=== PATIENT | male | born 1950 | race Caucasian/White ===

== ENCOUNTER 2019-04-17 06:04 | Inpatient (IN) | payer MEDICARE, OTHER ==
[~2019-04-17 06:04] MED LIST: Acetaminophen 325 MG Tab PO SCH; Pregabalin 25 MG Cap PO SCH; oxyCODONE ER 10 MG TAB.ER PO SCH
[2019-04-17] MEDS ORDERED: Ondansetron 4 MG/2 ML SDV IVPUSH PRN (06:35)
[2019-04-17] MEDS ORDERED: Morphine 2 MG/ML Syringe IVPUSH PRN (06:35)
[2019-04-17] MEDS ORDERED: Magnesium Hydroxide 400 MG/5 ML Susp 30 ML Cup PO PRN (06:35)
[2019-04-17] MEDS ORDERED: Bisacodyl 5 MG Tab PO PRN (06:35)
[2019-04-17] MEDS ORDERED: Sennosides 8.6 MG Tab PO PRN (06:35)
[2019-04-17] MEDS ORDERED: Naloxone 0.4 MG/ML SDV IVPUSH PRN (06:35)
[2019-04-17] MEDS ORDERED: Scopolamine 1.5 MG Transdermal Patch TOP SCH (06:47)
--- NOTE | 2019-04-17 06:57 | PCM.PREANE ---
Preanesthetic Assessment - Anesthesia/Transfusion/Family Hx Anesthesia History: Prior Anesthesia Reaction (nausea) Family History of Anesthesia Reaction: Yes (nausea) Transfusion History: Prior Transfusion Without Reaction - Review of Systems General: No Symptoms Pulmonary: No Symptoms Cardiovascular: No Symptoms Gastrointestinal: No Symptoms Neurological: No Symptoms Other: Reports: Easy Bruising, Diabetes (160 this am 0600) - Physical Assessment NPO Status Date: 04/16/19 NPO Status Time: 00:00 Height: 1.88 m Weight: 85.9 kg ASA Class: 3 Mental Status: Alert & Oriented x3 Airway Class: Mallampati = 1 Dentition: Reports: Broken Tooth/Teeth, Caries Thyro-Mental Finger Breadths: 3 Mouth Opening Finger Breadths: 3 ROM/Head Extension: Full Lungs: Clear to Auscultation, Normal Respiratory Effort Cardiovascular: Regular Rate, Regular Rhythm - Lab Values: Laboratory Last Values POC Glucose 160 mg/dL (80-115) H 04/17/19 06:34 MRSA (PCR) Negative 04/05/19 16:20 - Imaging/EKG Impressions: EKG NSR rate 61 - Allergies Allergies/Adverse Reactions: Allergies Allergy/AdvReac Type Severity Reaction Status Date / Time bacitracin Allergy Blisters Verified 04/14/19 14:28 Penicillins Allergy Hives Verified 04/14/19 14:28 Tetracyclines Allergy Rash Verified 04/14/19 14:28 - Blood Blood Available: No Product(s) Available: None - Anesthesia Plan Pre-Op Medication Ordered: Beta Shahla Beta Shahla: Metoprolol Med Last Dose Date: 04/17/19 Med Last Dose Time: 05:00 - Acknowledgements Anesthesia Type Planned: General Anesthesia, Regional Block (right interscalene block for post-op pain control) Pt an Appropriate Candidate for the Planned Anesthesia: Yes Alternatives and Risks of Anesthesia Discussed w Pt/Guardian: Yes Pt/Guardian Understands and Agrees with Anesthesia Plan: Yes PreAnesthesia Questionnaire HEENT History: Reports: Other (See Below) Other HEENT History: change in hearing, hearing aids bilaterally Cardiovascular History: Reports: Afib, CAD, Other (See Below) Other Cardiovascular History: mitral valve regurgitation, chest pain, afib, high cholesterol Respiratory History: Reports: None Gastrointestinal History: Reports: GERD, Other (See Below) Other Gastrointestinal History: nausea, abdominal pain Genitourinary History: Reports: BPH, Other (See Below) Other Genitourinary History: ureterolithiasis, right flank pain, slow stream [employer] History: Reports: None Musculoskeletal History: Reports: Osteoarthritis, Other (See Below) Other Musculoskeletal History: shoulder impingment, tenosynovitis of hand, joint pain, low back pain Neurological History: Reports: Other (See Below) Other Neuro History: lumbosacral radicular arm pain, back pain, back surgery, laminectomy, L3L4L5 Psychiatric History: Reports: None Endocrine/Metabolic History: Reports: Diabetes, Type II Hematologic History: Reports: None Immunologic History: Reports: None Oncologic (Cancer) History: Reports: None Dermatologic History: Reports: Seborrheic Dermatitis - Past Surgical History Head Surgeries/Procedures: Reports: None HEENT Surgical History: Reports: Eye Surgery Cardiovascular Surgical History: Reports: Coronary Artery Bypass Respiratory Surgical History: Reports: None GI Surgical History: Reports: Hernia Repair/Other Female Surgical History: Reports: None Male Surgical History: Reports: None Endocrine Surgical History: Reports: None Neurological Surgical History: Reports: None Musculoskeletal Surgical History: Reports: Other (See Below) Other Musculoskeletal Surgeries/Procedures:: left rotator cuff, right knee arthroscopy Oncologic Surgical History: Reports: None Dermatological Surgical History: Reports: None - SUBSTANCE USE Smoking Status *Q: Former Smoker Tobacco Use Within Last Twelve Months: No Second Hand Smoke Exposure: No Days Per Week of Alcohol Use: 0 Number of Drinks Per Day: 0 Total Drinks Per Week: 0 Recreational Drug Use History: No - HOME MEDS Home Medications: Home Meds Acetaminophen/Diphenhydramine [Tylenol Pm Ex-Strength Caplet] 2 dose PO BEDTIME PRN 04/14/19 [History] Cannabidiol (Cbd) Extract [CBD Oil] 1 dose PO DAILY 04/14/19 [History] Celecoxib 200 mg PO BID PRN 04/14/19 [History] Cholecalciferol (Vitamin D3) [Vitamin D3] 5,000 unit PO DAILY 04/14/19 [History] Diltiazem HCl [Cardizem Cd] 240 mg PO DAILY 04/14/19 [History] Empagliflozin [Jardiance] 25 mg PO DAILY 04/14/19 [History] Ezetimibe 10 mg PO DAILY 04/14/19 [History] Insulin Glarg,Human.Rec.Analog [Lantus Solostar] 20 units SQ BEDTIME 04/14/19 [ History] Ketoconazole [Nizoral 2% Crm] 1 dose TOP BID 04/14/19 [History] Lisinopril [Prinivil] 5 mg PO DAILY 04/14/19 [History] Metoprolol Succinate [Toprol Xl] 25 mg PO DAILY 04/14/19 [History] Omeprazole 20 mg PO DAILY 04/14/19 [History] Ondansetron HCl [Zofran] 4 mg PO TID PRN 04/14/19 [History] Pioglitazone HCl 30 mg PO DAILY 04/14/19 [History] Rivaroxaban [Xarelto] 20 mg PO DAILY 04/14/19 [History] Rosuvastatin Calcium 20 mg PO DAILY 04/14/19 [History] Tamsulosin HCl 0.4 mg PO DAILY 04/14/19 [History] metFORMIN HCl [Metformin HCl] 850 mg PO BID 04/14/19 [History] - CURRENT (IN HOUSE) MEDS Current Meds: Current Medications Acetaminophen (Tylenol) 975 mg PO NOW [facility] Stop: 04/17/19 12:00 Bisacodyl (Dulcolax) 5 mg PO DAILY PRN PRN Reason: Constipation Cyclobenzaprine HCl (Flexeril) 10 mg PO TID PRN PRN Reason: Spasms Docusate Sodium (Colace) 100 mg PO BID KENNY Famotidine (Pepcid) 20 mg PO Q12H [facility] [place] Lactated Ringer's (Ringers, Lactated) 1,000 mls @ 125 mls/hr IV ASDIRECTED [facility] Stop: 04/17/19 23:00 Cefazolin Sodium/Dextrose 2 gm (/ Premix) 50 mls @ 100 mls/hr IV Q8H [facility] [place] Stop: 04/17/19 23:14 Ketorolac Tromethamine (Toradol) 15 mg IVPUSH Q6H PRN PRN Reason: Pain Lidocaine/Sodium Bicarbonate (Buffered Lidocaine 1% In Ns 8.4%) 0.25 ml IDERM ONETIME PRN PRN Reason: Prior to IV Start Stop: 04/17/19 18:00 Magnesium Hydroxide (Milk Of Magnesia) 30 ml PO BID PRN PRN Reason: Constipation Miscellaneous Information (Remove Patch) 1 ea TRDERM ONETIME PRN PRN Reason: patch removal Stop: 04/20/19 12:00 Morphine Sulfate (Morphine) 2 mg IVPUSH Q2H PRN PRN Reason: Breakthrough Pain Naloxone HCl (Narcan) 0.1 mg IVPUSH Q5M PRN PRN Reason: Oversedation Ondansetron HCl (Zofran) 4 mg IVPUSH Q6H PRN PRN Reason: Nausea/Vomiting Oxycodone HCl (Oxycontin) 10 mg PO ONETIME KENNY Stop: 04/17/19 12:00 Oxycodone/Acetaminophen (Percocet 325-5 Mg) 1 - 2 tab PO Q4H PRN PRN Reason: Pain Pregabalin (Lyrica) 50 mg PO ONETIME KENNY Stop: 04/17/19 12:00 Scopolamine (Transderm-Scop) 1.5 mg TOP ONETIME KENNY Stop: 04/17/19 12:00 Senna (Senna) 8.6 mg PO BID PRN PRN Reason: Constipation Sodium Chloride (Saline Flush) 10 ml FLUSH ASDIRECTED PRN PRN Reason: Keep Vein Open Stop: 04/17/19 18:00
[2019-04-17] MEDS ORDERED: Famotidine 20 MG Tab PO SCH (07:00)
[2019-04-17] MEDS ORDERED: Lactated Ringers 1,000 ML IV SCH (07:00)
[2019-04-17] MEDS ORDERED: Sodium Chloride 0.9% 10 ML Syringe FLUSH PRN (07:00)
[2019-04-17] MEDS: Lidocaine 1%/Sod Bicarbonate in NS 8.4% 1 ML Syringe IDERM PRN ×2 (07:06→07:08)
[2019-04-17] MEDS ORDERED: Midazolam 1 MG/ML 2 ML SDV ONE (07:15)
[2019-04-17] MEDS ORDERED: Ondansetron 4 MG/2 ML SDV ONE (07:15)
[2019-04-17] MEDS ORDERED: Propofol 200 MG/20 ML SDV ONE ×8 (07:15→09:58)
[2019-04-17] MEDS ORDERED: fentaNYL 100 MCG/2 ML SDV ONE (07:15)
[2019-04-17] MEDS ORDERED: Lidocaine 1% 4 ML ONE (07:17)
[2019-04-17] MEDS ORDERED: Rocuronium 100 MG/10 ML MDV ONE (07:17)
--- NOTE | 2019-04-17 07:18 | PCM.CONS ---
H&P History of Present Illness - General Date of Service: 04/17/19 Admit Problem/Dx: Admission Diagnosis/Problem Admission Diagnosis/Problem Osteoarthritis of shoulder Source of Information: Patient, Old Records, Provider, RN, RN Notes Reviewed History Limitations: Reports: No Limitations - History of Present Illness Initial Comments - Free Text/Narative: Brien Reaves is a 68 yo male patient of Dr. Germain who is post-operative day 0 of right RTSA. Hospital medicine was consulted for post-operative medical care of the following listed medical conditions. At this time he is resting comfortably in bed. Pain is controlled. He denies any chest pain, shortness of breath, palpitations, nausea, or vomiting. He carries a history of: Type II DM, CVD, A- Fib, CAD with CABG x3 in 2001, Mitral valve regurgitation, Gastritis, OA, BPH, HTN, Anemia, GERD, HLD, Shoulder impingment, tenosynovitis of hand, chronic low back pain. He is a former smoker. He is a full code. His primary care provider is Dr. Lopez. Right Shoulder Pain Score (Numeric/FACES): 1 - Related Data Allergies/Adverse Reactions: Allergies Allergy/AdvReac Type Severity Reaction Status Date / Time bacitracin Allergy Blisters Verified 04/17/19 11:17 Penicillins Allergy Hives Verified 04/17/19 11:17 Tetracyclines Allergy Rash Verified 04/17/19 11:17 Home Medications: Home Meds Acetaminophen/Diphenhydramine [Tylenol Pm Ex-Strength Caplet] 2 dose PO BEDTIME PRN 04/14/19 [History] Cannabidiol (Cbd) Extract [CBD Oil] 1 dose PO DAILY 04/14/19 [History] Celecoxib 200 mg PO BID PRN 04/14/19 [History] Cholecalciferol (Vitamin D3) [Vitamin D3] 5,000 unit PO DAILY 04/14/19 [History] Diltiazem HCl [Cardizem Cd] 240 mg PO DAILY 04/14/19 [History] Empagliflozin [Jardiance] 25 mg PO DAILY 04/14/19 [History] Ezetimibe 10 mg PO DAILY 04/14/19 [History] Insulin Glarg,Human.Rec.Analog [Lantus Solostar] 20 units SQ BEDTIME 04/14/19 [ History] Ketoconazole [Nizoral 2% Crm] 1 dose TOP BID 04/14/19 [History] Lisinopril [Prinivil] 5 mg PO DAILY 04/14/19 [History] Metoprolol Succinate [Toprol Xl] 25 mg PO DAILY 04/14/19 [History] Omeprazole 20 mg PO DAILY 04/14/19 [History] Ondansetron HCl [Zofran] 4 mg PO TID PRN 04/14/19 [History] Pioglitazone HCl 30 mg PO DAILY 04/14/19 [History] Rivaroxaban [Xarelto] 20 mg PO DAILY 04/14/19 [History] Rosuvastatin Calcium 20 mg PO DAILY 04/14/19 [History] Tamsulosin HCl 0.4 mg PO DAILY 04/14/19 [History] metFORMIN HCl [Metformin HCl] 850 mg PO BID 04/14/19 [History] Past Medical History HEENT History: Reports: Other (See Below) Other HEENT History: change in hearing, hearing aids bilaterally Cardiovascular History: Reports: Afib, CAD, Other (See Below) Other Cardiovascular History: mitral valve regurgitation, chest pain, afib, high cholesterol Respiratory History: Reports: None Gastrointestinal History: Reports: GERD, Other (See Below) Other Gastrointestinal History: nausea, abdominal pain Genitourinary History: Reports: BPH, Other (See Below) Other Genitourinary History: ureterolithiasis, right flank pain, slow stream ADMITTING COORDINATOR History: Reports: None Musculoskeletal History: Reports: Osteoarthritis, Other (See Below) Other Musculoskeletal History: shoulder impingment, tenosynovitis of hand, joint pain, low back pain Neurological History: Reports: Other (See Below) Other Neuro History: lumbosacral radicular arm pain, back pain, back surgery, laminectomy, L3L4L5 Psychiatric History: Reports: None Endocrine/Metabolic History: Reports: Diabetes, Type II Hematologic History: Reports: None Immunologic History: Reports: None Oncologic (Cancer) History: Reports: None Dermatologic History: Reports: Seborrheic Dermatitis - Past Surgical History Head Surgeries/Procedures: Reports: None HEENT Surgical History: Reports: Eye Surgery Cardiovascular Surgical History: Reports: Coronary Artery Bypass Respiratory Surgical History: Reports: None GI Surgical History: Reports: Hernia Repair/Other Female Surgical History: Reports: None Male Surgical History: Reports: None Endocrine Surgical History: Reports: None Neurological Surgical History: Reports: None Musculoskeletal Surgical History: Reports: Other (See Below) Other Musculoskeletal Surgeries/Procedures:: left rotator cuff, right knee arthroscopy Oncologic Surgical History: Reports: None Dermatological Surgical History: Reports: None Social & Family History - Tobacco Use Smoking Status *Q: Former Smoker Used Tobacco, but Quit: Yes Month/Year Tobacco Last Used: 2001 Second Hand Smoke Exposure: No - Caffeine Use Caffeine Use: Reports: Coffee, Soda - Alcohol Use Days Per Week of Alcohol Use: 0 Number of Drinks Per Day: 0 Total Drinks Per Week: 0 - Recreational Drug Use Recreational Drug Use: No Drug Use in Last 12 Months: No H&P Review of Systems - Review of Systems: Review Of Systems: See Below General: Reports: No Symptoms. Denies: Fever, Chills HEENT: Reports: No Symptoms. Denies: Headaches, Sore Throat Pulmonary: Reports: No Symptoms. Denies: Shortness of Breath, Wheezing, Pleuritic Chest Pain, Cough, Sputum Cardiovascular: Reports: No Symptoms. Denies: Palpitations, Edema Gastrointestinal: Reports: No Symptoms. Denies: Abdominal Pain, Constipation, Diarrhea, Nausea, Vomiting Genitourinary: Reports: No Symptoms. Denies: Pain Musculoskeletal: Reports: Shoulder Pain (right ) Skin: Reports: No Symptoms. Denies: Cyanosis Psychiatric: Reports: No Symptoms. Denies: Confusion Neurological: Reports: No Symptoms. Denies: Pre-Existing Deficit, Difficulty Walking, Gait Disturbance Hematologic/Lymphatic: Reports: No Symptoms Immunologic: Reports: No Symptoms Exam - Exam Exam: See Below - Vital Signs Vital Signs: Last Vital Signs Temp 97.2 F 04/17/19 06:15 Pulse 67 04/17/19 06:15 Resp 16 04/17/19 06:15 BP 124/77 04/17/19 06:15 Pulse Ox 95 04/17/19 06:15 Weight: 189 lb 6.033 oz - Exam Quality Assessment: Supplemental Oxygen, DVT Prophylaxis General: Alert, Oriented, Cooperative. No: Mild Distress HEENT: Conjunctiva Clear, EACs Clear, EOMI, Hearing Intact, Mucosa Moist & Addis , Nares Patent, Posterior Pharynx Clear, PERRLA Neck: Supple, Trachea Midline Lungs: Clear to Auscultation, Normal Respiratory Effort Cardiovascular: Regular Rate, Regular Rhythm GI/Abdominal Exam: Normal Bowel Sounds, Soft, Non-Tender, No Distention, No Abnormal Bruit (Male) Exam: Deferred Rectal (Males) Exam: Deferred Back Exam: Full Range of Motion Extremities: No Pedal Edema, Normal Capillary Refill, Arm Pain (right shoulder ) , Limited Range of Motion, Other (Bandage in palce on right shoulder. Sling and swathe on right arm. Bandage is dry and intact. Cooling pack in place. ) Peripheral Pulses: 2+: Radial (L), Radial (R), Dorsalis Pedis (L), Dorsalis Pedis (R) Skin: Warm, Dry, Intact Neurological: Cranial Nerves Intact (grossly ) Neuro Extensive - Mental Status: Alert, Oriented x3 - Patient Data Lab Results Last 24 hrs: Laboratory Results - last 24 hr 04/17/19 Range/Units 06:34 POC Glucose 160 H (80-115) mg/dL Consult PN Assessment/Plan POD#: 0 (1) S/p reverse total shoulder arthroplasty SNOMED Code(s): 036946579, 516267691 Code(s): Z96.619 - PRESENCE OF UNSPECIFIED ARTIFICIAL SHOULDER JOINT Priority: High Current Visit: Yes Qualifiers: Laterality: right Qualified Code(s): Z96.611 - Presence of right artificial shoulder joint (2) Osteoarthritis SNOMED Code(s): 996594408 Code(s): M19.90 - UNSPECIFIED OSTEOARTHRITIS, UNSPECIFIED SITE Priority: High Current Visit: Yes Qualifiers: Osteoarthritis location: shoulder Osteoarthritis type: primary Laterality : right Qualified Code(s): M19.011 - Primary osteoarthritis, right shoulder (3) Type II diabetes mellitus SNOMED Code(s): 45351372 Code(s): E11.9 - TYPE 2 DIABETES MELLITUS WITHOUT COMPLICATIONS Priority: Medium Current Visit: No Qualifiers: 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 longterm insulin use status Diabetes mellitus complication status: without complication Qualified Code(s): E11.9 - Type 2 diabetes mellitus without complications (4) CVD (cardiovascular disease) SNOMED Code(s): 71061772 Code(s): I25.10 - ATHSCL HEART DISEASE OF [place] CORONARY ARTERY W/O ANG PCTRS Priority: Medium Current Visit: No (5) A-fib SNOMED Code(s): 26156143 Code(s): I48.91 - UNSPECIFIED ATRIAL FIBRILLATION Priority: Medium Current Visit: No Qualifiers: Atrial fibrillation type: unspecified Qualified Code(s): I48.91 - Unspecified atrial fibrillation (6) CAD (coronary artery disease) SNOMED Code(s): 59839407 Code(s): I25.10 - ATHSCL HEART DISEASE OF [place] CORONARY ARTERY W/O ANG PCTRS Priority: Low Current Visit: No Qualifiers: Coronary Disease-Associated Artery/Lesion type: bypass graft [place] vs. transplanted heart: [place] heart (7) Mitral valve regurgitation SNOMED Code(s): 57035654 Code(s): I34.0 - NONRHEUMATIC MITRAL (VALVE) INSUFFICIENCY Priority: Low Current Visit: No Qualifiers: Cardiac valve disease etiology: etiology unspecified Qualified Code(s): I34.0 - Nonrheumatic mitral (valve) insufficiency (8) Gastritis SNOMED Code(s): 9118921 Code(s): K29.70 - GASTRITIS, UNSPECIFIED, WITHOUT BLEEDING Priority: Low Current Visit: No Qualifiers: Gastritis type: unspecified gastritis Chronicity: unspecified Gastritis bleeding: presence of bleeding unspecified Qualified Code(s): K29.70 - Gastritis, unspecified, without bleeding (9) BPH (benign prostatic hyperplasia) SNOMED Code(s): 029128156 Code(s): N40.0 - BENIGN PROSTATIC HYPERPLASIA WITHOUT LOWER URINRY TRACT SYMP Priority: Low Current Visit: No Qualifiers: Lower urinary tract symptom presence: unspecified whether lower urinary tract symptoms present Qualified Code(s): N40.0 - Benign prostatic hyperplasia without lower urinary tract symptoms (10) HTN (hypertension) SNOMED Code(s): 56535021 Code(s): I10 - ESSENTIAL (PRIMARY) HYPERTENSION Priority: Low Current Visit: No Qualifiers: Hypertension type: unspecified Qualified Code(s): I10 - Essential (primary ) hypertension (11) Anemia SNOMED Code(s): 445374288 Code(s): D64.9 - ANEMIA, UNSPECIFIED Priority: Low Current Visit: No Qualifiers: Anemia type: unspecified type Qualified Code(s): D64.9 - Anemia, unspecified (12) GERD (gastroesophageal reflux disease) SNOMED Code(s): 221448885 Code(s): K21.9 - GASTRO-ESOPHAGEAL REFLUX DISEASE WITHOUT ESOPHAGITIS Priority: Low Current Visit: No Qualifiers: Esophagitis presence: esophagitis presence not specified Qualified Code(s) : K21.9 - Gastro-esophageal reflux disease without esophagitis (13) HLD (hyperlipidemia) SNOMED Code(s): 37227965 Code(s): E78.5 - HYPERLIPIDEMIA, UNSPECIFIED Priority: Low Current Visit : No Qualifiers: Hyperlipidemia type: unspecified Qualified Code(s): E78.5 - Hyperlipidemia , unspecified (14) Shoulder impingement SNOMED Code(s): 412043718 Code(s): M75.40 - IMPINGEMENT SYNDROME OF UNSPECIFIED SHOULDER Priority: Low Current Visit: No Qualifiers: Laterality: unspecified laterality Qualified Code(s): M75.40 - Impingement syndrome of unspecified shoulder (15) Chronic low back pain SNOMED Code(s): 678039757 Code(s): M54.5 - LOW BACK PAIN; G89.29 - OTHER CHRONIC PAIN Priority: Low Current Visit: No Qualifiers: Back pain laterality: unspecified Sciatica presence: unspecified whether sciatica present Qualified Code(s): M54.5 - Low back pain; G89.29 - Other chronic pain Problem List Initiated/Reviewed/Updated: Yes Plan: I/P: Acute: S/P right reverse total shoulder arthroplasty - post-operative day 0 -DVT prophylaxis and pain management per primary care team -PT/OT -IS/RT -Monitor oxygen saturation -Titrate oxygen as needed -Home medications reviewed -Vital signs stable -Monitor labs -Pre-operative Hgb was 13.2 -Pre-operative GFR was 63 -Pre-operative BUN was 27 -Pre-operative A1C 7.2% Osteoarthritis of right shoulder -Pain management per primary care team Chronic: Type II DM CVD Paroxysmal A-Fib CAD with CABG x3 in 2001 Mitral valve regurgitation Gastritis OA BPH HTN Anemia GERD HLD Shoulder impingement tenosynovitis of hand chronic low back pain Plan: CM for discharge planning GI prophylaxis Home medications as indicated Other orders as listed above Routine AM labs He is a full code. His PCP is Dr. Lopez Thank you for allowing us to participate in the care of this patient!! Requesting Provider: Dr. Germain Date Consult Requested: 04/17/19 Patient History Reviewed: Yes Admission H&P Reviewed: Yes
[2019-04-17] MEDS ORDERED: Lidocaine 1% 2 ML ONE (07:19)
[2019-04-17] MEDS ORDERED: ceFAZolin 1 GM Vial ONE (07:20)
[2019-04-17] MEDS ORDERED: Ropivacaine 0.5% 5 MG/ML 30 ML SDV ONE (07:24)
[2019-04-17] MEDS ORDERED: EPINEPHrine 1 MG/ML SDV ONE (07:24)
--- NOTE | 2019-04-17 08:00 | PCM.SN ---
- Free Text/Narrative Note: Anesthesia Note: (Interscalene block note) Date: 04/17/2019 Time Out: 737 Start: 737 Stop: 749 Surgical Procedure: Right Reverse Total Shoulder Arthroplasty Diagnosis: Right shoulder osteoarthritis Current Procedure: Right interscalene block under US guidance for postoperative pain control requested by Dr. Germain. Patient chart reviewed, risk/benefits discussed with patient, consent obtained. Patient positioned supine, monitors/alarms on, oxygen placed via nasal cannula at 2 LPM. IV sedation administered: Versed 1mg IV Fentanyl 50mcg IV Right shoulder prepped with chloraprep x2. Sterile drapes placed with aseptic technique. Under US guidance (sterile US sleeve) right subclavian artery visualized along with the right brachial plexus. Plexus followed cephalad up to C6 cricoid level, and area localized with 2mls of 1% lidocaine. 22gauge 2 inch stimiplex needle inserted under US and guided to brachial plexus C5-C6 trunks with 0.44mV with stimulation of biceps noted. Stimulation abolished at 0.2mVs. with 1ml of Normal Saline injected to confirm needle not placed intraneurally. Incremental injection of 5mls with negative aspiration prior to each injection of 0.5% ropivacaine with 1:200,000 epinephrine. Total volume=30mls. Please refer to nurses notes for vital signs, patient tolerated procedure well. Thank you! Moose Holland CRNA
[2019-04-17] MEDS ORDERED: Lactated Ringers 1,000 ML ONE (08:20)
[2019-04-17] MEDS ORDERED: Dexamethasone 4 MG/ML 5 ML MDV ONE (08:23)
[2019-04-17] MEDS ORDERED: diphenhydrAMINE 50 MG/ML SDV ONE (08:42)
[2019-04-17] MEDS: Iodine/Sodium Iodide 2% Tincture 30 ML Bottle ONE ×2 (09:10→09:36)
[2019-04-17] MEDS: ceFAZolin 1 GM Vial ONE ×2 (09:10→09:38)
[2019-04-17] MEDS: Vancomycin 1 GM SDV ONE ×2 (09:12→09:44)
--- NOTE | 2019-04-17 10:24 | PCM.POSTAN ---
POST ANESTHESIA ASSESSMENT - MENTAL STATUS Mental Status: Alert, Oriented - VITAL SIGNS Vital Signs: Last Vital Signs Temp 36.2 C 04/17/19 06:15 Pulse 67 04/17/19 06:15 Resp 16 04/17/19 06:15 BP 124/77 04/17/19 06:15 Pulse Ox 95 04/17/19 06:15 - RESPIRATORY Respiratory Status: Respiratory Rate WNL, Airway Patent, O2 Saturation Stable, Supplemental Oxygen - CARDIOVASCULAR CV Status: Pulse Rate WNL, Blood Pressure Stable - GASTROINTESTINAL GI Status: No Symptoms - PAIN Pain Score: 0 - POST OP HYDRATION Hydration Status: Adequate & Stable - OBSERVATIONS Free Text/Narrative:: no anesthesia complications noted
--- NOTE | 2019-04-17 10:33 | CR ---
Right shoulder: Two fluoroscopic spot views were obtained utilizing C-arm device. Study shows placement of reverse right shoulder prosthesis. Fluoroscopy time given as 2.3 seconds. Impression: 1. Procedural study as noted above. Diagnostic code #2 This report was dictated in [place] Standard Time
--- NOTE | 2019-04-17 11:00 | CR ---
Right shoulder: Portable supine view of the right shoulder was obtained. Comparison: Prior fluoroscopic study performed on the same day. Reversed right shoulder prosthesis is noted. Components are aligned. Soft tissue air is noted from the surgical procedure. No acute bony abnormality is seen. Impression: 1. Satisfactory postop radiographic appearance of recently placed right shoulder prosthesis. Diagnostic code #2 This report was dictated in [place] Standard Time
[2019-04-17] MEDS: ceFAZolin 2 GM in Premix Bag 1 BAG IV SCH (14:47)
[2019-04-17] MEDS: Insulin Lispro 100 Units/ML 3 ML Vial SUBCUT SCH ×2 (17:42→21:35)
[2019-04-17] MEDS ORDERED: Insulin Glarg,Human.Rec.Analog 100 UNIT/ML ML SUBCUT SCH (17:45)
[2019-04-17] MEDS: Acetaminophen/oxyCODONE 325-5 MG Tab PO PRN ×2 (18:31→21:18)
[2019-04-17] MEDS ORDERED: Rosuvastatin 10 MG Tab PO SCH (19:00)
[2019-04-17] MEDS ORDERED: Lisinopril 5 MG Tab PO SCH (19:00)
[2019-04-17] MEDS ORDERED: Ezetimibe 10 MG Tab PO SCH (19:00)
[2019-04-17] MEDS ORDERED: Tamsulosin 0.4 MG Cap.ER PO SCH (19:00)
[2019-04-17] MEDS ORDERED: Cholecalciferol (Vitamin D3) 5,000 UNIT Tab PO SCH (19:00)
[2019-04-17] MEDS ORDERED: Empagliflozin [Jardiance] 25 MG PO SCH (19:00)
[2019-04-17] MEDS: Docusate Sodium 100 MG Cap PO SCH (21:16)
[2019-04-17] MEDS: Clotrimazole 1% Crm 30 GM Tube TOP SCH (21:17)
[2019-04-17] MEDS: Ketorolac 15 MG/ML SDV IVPUSH PRN (21:17)
[2019-04-18] MEDS: ceFAZolin 2 GM in Premix Bag 1 BAG IV SCH ×2 (00:56→06:53)
[2019-04-18] MEDS: Acetaminophen/oxyCODONE 325-5 MG Tab PO PRN ×3 (01:24→08:48)
[2019-04-18] MEDS: Cyclobenzaprine 10 MG Tab PO PRN ×2 (01:24→10:48)
[2019-04-18] MEDS: Ketorolac 15 MG/ML SDV IVPUSH PRN (04:40)
--- NOTE | 2019-04-18 06:56 | PCM.CONSN ---
- General Info Date of Service: 04/18/19 Admission Dx/Problem (Free Text): Admission Diagnosis/Problem Admission Diagnosis/Problem Osteoarthritis of shoulder Functional Status: Reports: Pain Controlled, Tolerating Diet, Ambulating, Urinating, Incentive Spirometry. Denies: New Symptoms - Review of Systems General: Reports: No Symptoms. Denies: Fever, Chills HEENT: Reports: No Symptoms. Denies: Headaches, Sore Throat Pulmonary: Reports: No Symptoms. Denies: Shortness of Breath, Cough, Sputum, Wheezing Cardiovascular: Reports: No Symptoms. Denies: Chest Pain, Palpitations, Dyspnea on Exertion Gastrointestinal: Reports: No Symptoms. Denies: Abdominal Pain, Constipation, Diarrhea, Nausea, Vomiting Genitourinary: Reports: No Symptoms. Denies: Pain Musculoskeletal: Reports: Shoulder Pain (right ) Skin: Reports: No Symptoms. Denies: Cyanosis Neurological: Reports: No Symptoms. Denies: Confusion, Trouble Speaking, Difficulty Walking, Gait Disturbance Psychiatric: Reports: No Symptoms - Patient Data Vitals - Most Recent: Last Vital Signs Temp 98.2 F 04/18/19 04:45 Pulse 61 04/18/19 04:45 Resp 18 04/18/19 04:45 BP 113/73 04/18/19 04:45 Pulse Ox 92 L 04/18/19 04:45 Weight - Most Recent: 195 lb 1.6 oz I&O - Last 24 Hours: Intake & Output 04/17/19 04/17/19 04/18/19 14:59 22:59 06:59 Intake Total 200 1590 350 Output Total 175 350 800 Balance 25 1240 -450 Lab Results Last 24 Hours: Laboratory Results - last 24 hr 04/17/19 04/17/19 04/18/19 Range/Units 17:24 21:26 04:54 WBC 10.55 H (4.23-9.07) K/mm3 RBC 4.39 L (4.63-6.08) M/mm3 Hgb 11.1 L (13.7-17.5) gm/dl Hct 35.7 L (40.1-51.0) % MCV 81.3 (79.0-92.2) fl MCH 25.3 L (25.7-32.2) pg MCHC 31.1 L (32.2-35.5) g/dl RDW Std Deviation 55.8 H (35.1-43.9) fL Plt Count 300 (163-337) K/mm3 MPV 10.2 (9.4-12.3) fl POC Glucose 180 H 216 H (80-115) mg/dL Med Orders - Current: Current Medications Bisacodyl (Dulcolax) 5 mg PO DAILY PRN PRN Reason: Constipation Cholecalciferol (Vitamin D3) 5,000 unit PO DAILY@1900 [facility] Last Admin: 04/17/19 18:18 Dose: 5,000 unit Clotrimazole (Lotrimin Af 1% Crm) 0 gm TOP BID [facility] Last Admin: 04/17/19 21:17 Dose: Not Given Cyclobenzaprine HCl (Flexeril) 10 mg PO TID PRN PRN Reason: Spasms Last Admin: 04/18/19 01:24 Dose: 10 mg Diltiazem HCl (Dilacor Xr) 240 mg PO DAILY [facility] Docusate Sodium (Colace) 100 mg PO BID [facility] Last Admin: 04/17/19 21:16 Dose: 100 mg Ezetimibe (Zetia) 10 mg PO DAILY@1900 [facility] Last Admin: 04/17/19 18:19 Dose: 10 mg Cefazolin Sodium/Dextrose 2 gm (/ Premix) 50 mls @ 100 mls/hr IV Q8H [facility] Stop: 04/18/19 07:29 Last Admin: 04/18/19 06:53 Dose: 100 mls/hr Insulin Glargine (Lantus) 20 unit SUBCUT DAILY@1745 [facility] Last Admin: 04/17/19 17:42 Dose: 20 units Insulin Human Lispro (Humalog) 0 unit SUBCUT QIDACANDBED [facility]; Protocol Last Admin: 04/17/19 21:35 Dose: 2 unit Magnesium Hydroxide (Milk Of Magnesia) 30 ml PO BID PRN PRN Reason: Constipation Metoprolol Succinate (Toprol Xl) 25 mg PO DAILY [facility] Miscellaneous Information (Remove Patch) 1 ea TRDERM ONETIME PRN PRN Reason: patch removal Stop: 04/20/19 12:00 Morphine Sulfate (Morphine) 2 mg IVPUSH Q2H PRN PRN Reason: Breakthrough Pain Naloxone HCl (Narcan) 0.1 mg IVPUSH Q5M PRN PRN Reason: Oversedation Ondansetron HCl (Zofran) 4 mg IVPUSH Q6H PRN PRN Reason: Nausea/Vomiting Oxycodone/Acetaminophen (Percocet 325-5 Mg) 1 - 2 tab PO Q4H PRN PRN Reason: Pain Last Admin: 04/18/19 04:40 Dose: 2 tab Pantoprazole Sodium (Protonix) 40 mg PO DAILY@0700 [facility] Last Admin: 04/18/19 06:53 Dose: 40 mg Empagliflozin [ (Jardiance] 25 Mg) 0 each PO DAILY@1900 [facility] Last Admin: 04/17/19 18:32 Dose: Not Given Rivaroxaban (Xarelto) 20 mg PO DAILY [facility] Rosuvastatin Calcium (Crestor) 20 mg PO DAILY@190 [facility] Last Admin: 04/17/19 18:18 Dose: 20 mg Senna (Senna) 8.6 mg PO BID PRN PRN Reason: Constipation Tamsulosin HCl (Flomax) 0.4 mg PO DAILY@1900 [facility] Last Admin: 04/17/19 18:18 Dose: 0.4 mg Discontinued Medications Acetaminophen (Tylenol) 975 mg PO NOW [facility] Stop: 04/17/19 12:00 Last Admin: 04/17/19 07:03 Dose: 975 mg Cefazolin Sodium (Ancef) Confirm Administered Dose 2 gm .ROUTE .STK-MED ONE Stop: 04/17/19 07:13 Last Admin: 04/17/19 09:38 Dose: 2 gm Cefazolin Sodium (Ancef) Confirm Administered Dose 2 gm .ROUTE .STK-MED ONE Stop: 04/17/19 07:21 Dexamethasone (Dexamethasone) Confirm Administered Dose 20 mg .ROUTE .STK-MED ONE Stop: 04/17/19 08:24 Diphenhydramine HCl (Benadryl) Confirm Administered Dose 50 mg .ROUTE .STK-MED ONE Stop: 04/17/19 08:43 Epinephrine HCl (Adrenalin) Confirm Administered Dose 1 mg .ROUTE .STK-MED ONE Stop: 04/17/19 07:25 Famotidine (Pepcid) 20 mg PO Q12H [facility] Last Admin: 04/17/19 12:28 Dose: Not Given Fentanyl (Sublimaze) Confirm Administered Dose 100 mcg .ROUTE .STK-MED ONE Stop: 04/17/19 07:16 Lactated Ringer's (Ringers, Lactated) 1,000 mls @ 125 mls/hr IV ASDIRECTED [facility] Stop: 04/17/19 23:00 Last Admin: 04/17/19 07:07 Dose: 125 mls/hr Lidocaine HCl (Xylocaine-Mpf 1%) Confirm Administered Dose 4 mls @ as directed .ROUTE .STK-MED ONE Stop: 04/17/19 07:18 Lidocaine HCl (Xylocaine-Mpf 1%) Confirm Administered Dose 2 mls @ as directed .ROUTE .STK-MED ONE Stop: 04/17/19 07:20 Lactated Ringer's (Ringers, Lactated) Confirm Administered Dose 1,000 mls @ as directed .ROUTE .STK-MED ONE Stop: 04/17/19 08:21 Iodine (Iodine 2% Mild Tincture) Confirm Administered Dose 30 ml .ROUTE .STK- MED ONE Stop: 04/17/19 07:13 Last Admin: 04/17/19 09:36 Dose: 18 ml Ketorolac Tromethamine (Toradol) 15 mg IVPUSH Q6H PRN PRN Reason: Pain Last Admin: 04/18/19 04:40 Dose: 15 mg Lidocaine/Sodium Bicarbonate (Buffered Lidocaine 1% In Ns 8.4%) 0.25 ml IDERM ONETIME PRN PRN Reason: Prior to IV Start Stop: 04/17/19 18:00 Last Admin: 04/17/19 07:08 Dose: 0.25 ml Lisinopril (Prinivil) 5 mg PO DAILY@1900 [facility] Midazolam HCl (Versed 1 Mg/Ml) Confirm Administered Dose 2 mg .ROUTE .STK-MED ONE Stop: 04/17/19 07:16 Ondansetron HCl (Zofran) Confirm Administered Dose 4 mg .ROUTE .STK-MED ONE Stop: 04/17/19 07:16 Oxycodone HCl (Oxycontin) 10 mg PO ONETIME [facility] Stop: 04/17/19 12:00 Last Admin: 04/17/19 07:02 Dose: 10 mg Pregabalin (Lyrica) 50 mg PO ONETIME [facility] Stop: 04/17/19 12:00 Last Admin: 04/17/19 07:03 Dose: 50 mg Propofol (Diprivan 20 Ml) Confirm Administered Dose 200 mg .ROUTE .STK-MED ONE Stop: 04/17/19 07:16 Propofol (Diprivan 20 Ml) Confirm Administered Dose 200 mg .ROUTE .STK-MED ONE Stop: 04/17/19 08:15 Propofol (Diprivan 20 Ml) Confirm Administered Dose 200 mg .ROUTE .STK-MED ONE Stop: 04/17/19 08:35 Propofol (Diprivan 20 Ml) Confirm Administered Dose 200 mg .ROUTE .STK-MED ONE Stop: 04/17/19 08:51 Propofol (Diprivan 20 Ml) Confirm Administered Dose 200 mg .ROUTE .STK-MED ONE Stop: 04/17/19 09:03 Propofol (Diprivan 20 Ml) Confirm Administered Dose 200 mg .ROUTE .STK-MED ONE Stop: 04/17/19 09:22 Propofol (Diprivan 20 Ml) Confirm Administered Dose 200 mg .ROUTE .STK-MED ONE Stop: 04/17/19 09:41 Propofol (Diprivan 20 Ml) Confirm Administered Dose 200 mg .ROUTE .STK-MED ONE Stop: 04/17/19 09:59 Rocuronium [place] (Zemuron) Confirm Administered Dose 100 mg .ROUTE .STK-MED ONE Stop: 04/17/19 07:18 Ropivacaine (Naropin 0.5%) Confirm Administered Dose 30 ml .ROUTE .STK-MED ONE Stop: 04/17/19 07:25 Scopolamine (Transderm-Scop) 1.5 mg TOP ONETIME [facility] Stop: 04/17/19 12:00 Last Admin: 04/17/19 07:02 Dose: 1.5 mg Sodium Chloride (Saline Flush) 10 ml FLUSH ASDIRECTED PRN PRN Reason: Keep Vein Open Stop: 04/17/19 18:00 Tranexamic Acid (Cyklokapron) Confirm Administered Dose 1,000 mg .ROUTE .STK- MED ONE Stop: 04/17/19 07:13 Last Admin: 04/17/19 09:44 Dose: 1,000 mg Vancomycin HCl (Vancomycin) Confirm Administered Dose 1 gm .ROUTE .STK-MED ONE Stop: 04/17/19 07:13 Last Admin: 04/17/19 09:44 Dose: 1 gm - Exam Quality Assessment: DVT Prophylaxis. No: Supplemental Oxygen General: Alert, Oriented, Cooperative, No Acute Distress HEENT: Pupils Equal, Pupils Reactive, Mucous Membr. Moist/[place] Neck: Supple, Trachea Midline Lungs: Clear to Auscultation, Normal Respiratory Effort Cardiovascular: Regular Rate, Regular Rhythm GI/Abdominal Exam: Normal Bowel Sounds, Soft, Non-Tender, No Distention, No Abnormal Bruit (Male) Exam: Deferred Back Exam: Normal Inspection, Full Range of Motion Extremities: No Pedal Edema, Normal Capillary Refill, Arm Pain (Right shoulder ) , Limited Range of Motion, Other (Bandage in place on right shoulder. Sling and swathe in place. Cooling pack in place. ) Peripheral Pulses: 2+: Radial (L), Radial (R), Dorsalis Pedis (L), Dorsalis Pedis (R) Skin: Warm, Dry, Intact Neurological: No New Focal Deficit Psy/Mental Status: Alert, Normal Affect, Normal Mood Sepsis Event Note - Evaluation Current Stage of Sepsis: Ruled Out Reason for Ruling Out Sepsis: Not applicable Consult PN Assessment/Plan POD#: 1 (1) S/p reverse total shoulder arthroplasty SNOMED Code(s): 944126821, 338871023 Code(s): Z96.619 - PRESENCE OF UNSPECIFIED ARTIFICIAL SHOULDER JOINT Priority: High Current Visit: Yes Qualifiers: Laterality: right Qualified Code(s): Z96.611 - Presence of right artificial shoulder joint (2) Osteoarthritis SNOMED Code(s): 823775152 Code(s): M19.90 - UNSPECIFIED OSTEOARTHRITIS, UNSPECIFIED SITE Priority: High Current Visit: Yes Qualifiers: Osteoarthritis location: shoulder Osteoarthritis type: primary Laterality : right Qualified Code(s): M19.011 - Primary osteoarthritis, right shoulder (3) Type II diabetes mellitus SNOMED Code(s): 04704442 Code(s): E11.9 - TYPE 2 DIABETES MELLITUS WITHOUT COMPLICATIONS Priority: Medium Current Visit: No Qualifiers: Diabetes mellitus senior living insulin use: unspecified senior living insulin use status Diabetes mellitus complication status: without complication Qualified Code(s): E11.9 - Type 2 diabetes mellitus without complications (4) CVD (cardiovascular disease) SNOMED Code(s): 07652231 Code(s): I25.10 - ATHSCL HEART DISEASE OF [place] CORONARY ARTERY W/O ANG PCTRS Priority: Medium Current Visit: No (5) A-fib SNOMED Code(s): 81120016 Code(s): I48.91 - UNSPECIFIED ATRIAL FIBRILLATION Priority: Medium Current Visit: No Qualifiers: Atrial fibrillation type: unspecified Qualified Code(s): I48.91 - Unspecified atrial fibrillation (6) CAD (coronary artery disease) SNOMED Code(s): 42425674 Code(s): I25.10 - ATHSCL HEART DISEASE OF [place] CORONARY ARTERY W/O ANG PCTRS Priority: Low Current Visit: No Qualifiers: Coronary Disease-Associated Artery/Lesion type: bypass graft [place] vs. transplanted heart: [place] heart (7) Mitral valve regurgitation SNOMED Code(s): 25702268 Code(s): I34.0 - NONRHEUMATIC MITRAL (VALVE) INSUFFICIENCY Priority: Low Current Visit: No Qualifiers: Cardiac valve disease etiology: etiology unspecified Qualified Code(s): I34.0 - Nonrheumatic mitral (valve) insufficiency (8) Gastritis SNOMED Code(s): 0224608 Code(s): K29.70 - GASTRITIS, UNSPECIFIED, WITHOUT BLEEDING Priority: Low Current Visit: No Qualifiers: Gastritis type: unspecified gastritis Chronicity: unspecified Gastritis bleeding: presence of bleeding unspecified Qualified Code(s): K29.70 - Gastritis, unspecified, without bleeding (9) BPH (benign prostatic hyperplasia) SNOMED Code(s): 358219263 Code(s): N40.0 - BENIGN PROSTATIC HYPERPLASIA WITHOUT LOWER URINRY TRACT SYMP Priority: Low Current Visit: No Qualifiers: Lower urinary tract symptom presence: unspecified whether lower urinary tract symptoms present Qualified Code(s): N40.0 - Benign prostatic hyperplasia without lower urinary tract symptoms (10) HTN (hypertension) SNOMED Code(s): 58463345 Code(s): I10 - ESSENTIAL (PRIMARY) HYPERTENSION Priority: Low Current Visit: No Qualifiers: Hypertension type: unspecified Qualified Code(s): I10 - Essential (primary ) hypertension (11) Anemia SNOMED Code(s): 475514216 Code(s): D64.9 - ANEMIA, UNSPECIFIED Priority: Low Current Visit: No Qualifiers: Anemia type: unspecified type Qualified Code(s): D64.9 - Anemia, unspecified (12) GERD (gastroesophageal reflux disease) SNOMED Code(s): 959839347 Code(s): K21.9 - GASTRO-ESOPHAGEAL REFLUX DISEASE WITHOUT ESOPHAGITIS Priority: Low Current Visit: No Qualifiers: Esophagitis presence: esophagitis presence not specified Qualified Code(s) : K21.9 - Gastro-esophageal reflux disease without esophagitis (13) HLD (hyperlipidemia) SNOMED Code(s): 84509774 Code(s): E78.5 - HYPERLIPIDEMIA, UNSPECIFIED Priority: Low Current Visit : No Qualifiers: Hyperlipidemia type: unspecified Qualified Code(s): E78.5 - Hyperlipidemia , unspecified (14) Shoulder impingement SNOMED Code(s): 537989064 Code(s): M75.40 - IMPINGEMENT SYNDROME OF UNSPECIFIED SHOULDER Priority: Low Current Visit: No Qualifiers: Laterality: unspecified laterality Qualified Code(s): M75.40 - Impingement syndrome of unspecified shoulder (15) Chronic low back pain SNOMED Code(s): 497567745 Code(s): M54.5 - LOW BACK PAIN; G89.29 - OTHER CHRONIC PAIN Priority: Low Current Visit: No Qualifiers: Back pain laterality: unspecified Sciatica presence: unspecified whether sciatica present Qualified Code(s): M54.5 - Low back pain; G89.29 - Other chronic pain Problem List Initiated/Reviewed/Updated: Yes My Orders Last 24 Hours: My Active Orders 04/17/19 14:48 Blood Glucose Check, Bedside [RC] QIDACANDBED 04/17/19 16:34 Patient Status [ADT] Routine 04/17/19 17:00 Insulin Lispro [HumaLOG] See Protocol SUBCUT QIDACANDBED Plan: I/P: Acute: S/P right reverse total shoulder arthroplasty - post-operative day 1 -DVT prophylaxis and pain management per primary care team -PT/OT -IS/RT -Monitor oxygen saturation -Titrate oxygen as needed -Home medications reviewed -Vital signs stable -Monitor labs -Pre-operative Hgb was 13.2; Now 11.1 -Pre-operative GFR was 63; Now >60 -Pre-operative BUN was 27; Now 20 -Pre-operative A1C 7.2% Osteoarthritis of right shoulder -Pain management per primary care team Chronic: Type II DM CVD Paroxysmal A-Fib CAD with CABG x3 in 2001 Mitral valve regurgitation Gastritis OA BPH HTN Anemia GERD HLD Shoulder impingement tenosynovitis of hand chronic low back pain Plan: CM for discharge planning GI prophylaxis Home medications as indicated Other orders as listed above Routine AM labs He is a full code. His PCP is Dr. Lopez From a hospitalist standpoint Brien is doing well. He has been up ambulating and working with therapies. He is off of oxygen and has urinated. He has tolerated a diet. He has been utilizing his IS. His labs and vital signs remain stable. He is cleared for discharge pending primary team and PT/OT agreement. Thank you for allowing us to participate in the care of this patient!!
[2019-04-18] MEDS ORDERED: Pantoprazole 40 MG Tab.CR PO SCH (07:00)
[2019-04-18] MEDS: Docusate Sodium 100 MG Cap PO SCH (08:48)
[2019-04-18] MEDS: Insulin Lispro 100 Units/ML 3 ML Vial SUBCUT SCH (08:50)
[2019-04-18] MEDS: Clotrimazole 1% Crm 30 GM Tube TOP SCH (08:54)
[2019-04-18] MEDS ORDERED: Metoprolol Succinate 25 MG Tab.ER PO SCH (09:00)
[2019-04-18] MEDS ORDERED: Rivaroxaban 10 MG Tab PO SCH (09:00)
[2019-04-18] MEDS ORDERED: Diltiazem 240 MG Cap.ER PO SCH (09:00)
--- NOTE | 2019-04-18 11:37 | PCM48HPAN ---
Post Anesthesia Note - EVALUATION WITHIN 48HRS OF ANESTHETIC Vital Signs in Normal Range: Yes Patient Participated in Evaluation: Yes Respiratory Function Stable: Yes Airway Patent: Yes Cardiovascular Function Stable: Yes Hydration Status Stable: Yes Pain Control Satisfactory: Yes Nausea and Vomiting Control Satisfactory: Yes Mental Status Recovered: Yes Vital Signs: Last Vital Signs Temp 36.8 C 04/18/19 04:45 Pulse 63 04/18/19 08:50 Resp 18 04/18/19 04:45 BP 121/63 04/18/19 08:50 Pulse Ox 92 L 04/18/19 04:45
--- NOTE | 2019-04-18 12:25 | PCM.SURGPN ---
- General Info Date of Service: 04/18/19 POD#: 1 Functional Status: Reports: Pain Controlled, Tolerating Diet, Ambulating, Urinating, Incentive Spirometry, Other (The pt states he is doing well.) - Patient Data Vitals - Most Recent: Last Vital Signs Temp 98.2 F 04/18/19 04:45 Pulse 65 04/18/19 08:52 Resp 16 04/18/19 08:52 BP 121/63 04/18/19 08:52 Pulse Ox 91 L 04/18/19 08:52 Weight - Most Recent: 195 lb 1.6 oz I&O - Last 24 Hours: Intake & Output 04/17/19 04/18/19 04/18/19 22:59 06:59 14:59 Intake Total 1590 350 240 Output Total 350 800 Balance 1240 -450 240 Lab Results Last 24 Hrs: Laboratory Results - last 24 hr 04/17/19 04/17/19 04/18/19 Range/Units 17:24 21:26 04:54 WBC 10.55 H (4.23-9.07) K/mm3 RBC 4.39 L (4.63-6.08) M/mm3 Hgb 11.1 L (13.7-17.5) gm/dl Hct 35.7 L (40.1-51.0) % MCV 81.3 (79.0-92.2) fl MCH 25.3 L (25.7-32.2) pg MCHC 31.1 L (32.2-35.5) g/dl RDW Std Deviation 55.8 H (35.1-43.9) fL Plt Count 300 (163-337) K/mm3 MPV 10.2 (9.4-12.3) fl Sodium (136-145) mEq/L Potassium (3.5-5.1) mEq/L Chloride (98-107) mEq/L Carbon Dioxide (21-32) mEq/L Anion Gap (5-15) BUN (7-18) mg/dL Creatinine (0.7-1.3) mg/dL Est Cr Clr Drug Dosing mL/min Estimated GFR (MDRD) (>60) mL/min BUN/Creatinine Ratio (14-18) Glucose (80-115) mg/dL POC Glucose 180 H 216 H (80-115) mg/dL Calcium (8.5-10.1) mg/dL Total Bilirubin (0.2-1.0) mg/dL AST (15-37) U/L ALT (16-63) U/L Alkaline Phosphatase (46-116) U/L Total Protein (6.4-8.2) g/dl Albumin (3.4-5.0) g/dl Globulin gm/dL Albumin/Globulin Ratio (1-2) 04/18/19 04/18/19 Range/Units 04:54 07:02 WBC (4.23-9.07) K/mm3 RBC (4.63-6.08) M/mm3 Hgb (13.7-17.5) gm/dl Hct (40.1-51.0) % MCV (79.0-92.2) fl MCH (25.7-32.2) pg MCHC (32.2-35.5) g/dl RDW Std Deviation (35.1-43.9) fL Plt Count (163-337) K/mm3 MPV (9.4-12.3) fl Sodium 140 (136-145) mEq/L Potassium 4.1 (3.5-5.1) mEq/L Chloride 105 (98-107) mEq/L Carbon Dioxide 25 (21-32) mEq/L Anion Gap 14.1 (5-15) BUN 18 (7-18) mg/dL Creatinine 0.9 (0.7-1.3) mg/dL Est Cr Clr Drug Dosing 91.24 mL/min Estimated GFR (MDRD) > 60 (>60) mL/min BUN/Creatinine Ratio 20.0 H (14-18) Glucose 141 H (80-115) mg/dL POC Glucose 165 H (80-115) mg/dL Calcium 8.7 (8.5-10.1) mg/dL Total Bilirubin 0.3 (0.2-1.0) mg/dL AST 15 (15-37) U/L ALT 18 (16-63) U/L Alkaline Phosphatase 59 (46-116) U/L Total Protein 6.4 (6.4-8.2) g/dl Albumin 3.2 L (3.4-5.0) g/dl Globulin 3.2 gm/dL Albumin/Globulin Ratio 1.0 (1-2) Med Orders - Current: Current Medications Bisacodyl (Dulcolax) 5 mg PO DAILY PRN PRN Reason: Constipation Cholecalciferol (Vitamin D3) 5,000 unit PO DAILY@1900 [facility] Last Admin: 04/17/19 18:18 Dose: 5,000 unit Clotrimazole (Lotrimin Af 1% Crm) 0 gm TOP BID [facility] Last Admin: 04/18/19 08:54 Dose: Not Given Cyclobenzaprine HCl (Flexeril) 10 mg PO TID PRN PRN Reason: Spasms Last Admin: 04/18/19 10:48 Dose: 10 mg Diltiazem HCl (Dilacor Xr) 240 mg PO DAILY [facility] Last Admin: 04/18/19 08:48 Dose: 240 mg Docusate Sodium (Colace) 100 mg PO BID [facility] Last Admin: 04/18/19 08:48 Dose: 100 mg Ezetimibe (Zetia) 10 mg PO DAILY@1900 [facility] Last Admin: 04/17/19 18:19 Dose: 10 mg Insulin Glargine (Lantus) 20 unit SUBCUT DAILY@1745 [facility] Last Admin: 04/17/19 17:42 Dose: 20 units Insulin Human Lispro (Humalog) 0 unit SUBCUT QIDACANDBED [facility]; Protocol Last Admin: 04/18/19 08:50 Dose: 1 unit Magnesium Hydroxide (Milk Of Magnesia) 30 ml PO BID PRN PRN Reason: Constipation Metoprolol Succinate (Toprol Xl) 25 mg PO DAILY [facility] Last Admin: 04/18/19 08:50 Dose: 25 mg Miscellaneous Information (Remove Patch) 1 ea TRDERM ONETIME PRN PRN Reason: patch removal Stop: 04/20/19 12:00 Morphine Sulfate (Morphine) 2 mg IVPUSH Q2H PRN PRN Reason: Breakthrough Pain Naloxone HCl (Narcan) 0.1 mg IVPUSH Q5M PRN PRN Reason: Oversedation Ondansetron HCl (Zofran) 4 mg IVPUSH Q6H PRN PRN Reason: Nausea/Vomiting Oxycodone/Acetaminophen (Percocet 325-5 Mg) 1 - 2 tab PO Q4H PRN PRN Reason: Pain Last Admin: 04/18/19 08:48 Dose: 2 tab Pantoprazole Sodium (Protonix) 40 mg PO DAILY@0700 [facility] Last Admin: 04/18/19 06:53 Dose: 40 mg Empagliflozin [ (Jardiance] 25 Mg) 0 each PO DAILY@1900 [facility] Last Admin: 04/17/19 18:32 Dose: Not Given Rivaroxaban (Xarelto) 20 mg PO DAILY [facility] Last Admin: 04/18/19 08:48 Dose: 20 mg Rosuvastatin Calcium (Crestor) 20 mg PO DAILY@1900 [facility] Last Admin: 04/17/19 18:18 Dose: 20 mg Senna (Senna) 8.6 mg PO BID PRN PRN Reason: Constipation Tamsulosin HCl (Flomax) 0.4 mg PO DAILY@1900 [facility] Last Admin: 04/17/19 18:18 Dose: 0.4 mg Discontinued Medications Acetaminophen (Tylenol) 975 mg PO NOW [facility] Stop: 04/17/19 12:00 Last Admin: 04/17/19 07:03 Dose: 975 mg Cefazolin Sodium (Ancef) Confirm Administered Dose 2 gm .ROUTE .STK-MED ONE Stop: 04/17/19 07:13 Last Admin: 04/17/19 09:38 Dose: 2 gm Cefazolin Sodium (Ancef) Confirm Administered Dose 2 gm .ROUTE .STK-MED ONE Stop: 04/17/19 07:21 Dexamethasone (Dexamethasone) Confirm Administered Dose 20 mg .ROUTE .STK-MED ONE Stop: 04/17/19 08:24 Diphenhydramine HCl (Benadryl) Confirm Administered Dose 50 mg .ROUTE .STK-MED ONE Stop: 04/17/19 08:43 Epinephrine HCl (Adrenalin) Confirm Administered Dose 1 mg .ROUTE .STK-MED ONE Stop: 04/17/19 07:25 Famotidine (Pepcid) 20 mg PO Q12H [facility] Last Admin: 04/17/19 12:28 Dose: Not Given Fentanyl (Sublimaze) Confirm Administered Dose 100 mcg .ROUTE .STK-MED ONE Stop: 04/17/19 07:16 Lactated Ringer's (Ringers, Lactated) 1,000 mls @ 125 mls/hr IV ASDIRECTED [facility] Stop: 04/17/19 23:00 Last Admin: 04/17/19 07:07 Dose: 125 mls/hr Cefazolin Sodium/Dextrose 2 gm (/ Premix) 50 mls @ 100 mls/hr IV Q8H [facility] Stop: 04/18/19 07:29 Last Admin: 04/18/19 06:53 Dose: 100 mls/hr Lidocaine HCl (Xylocaine-Mpf 1%) Confirm Administered Dose 4 mls @ as directed .ROUTE .STK-MED ONE Stop: 04/17/19 07:18 Lidocaine HCl (Xylocaine-Mpf 1%) Confirm Administered Dose 2 mls @ as directed .ROUTE .STK-MED ONE Stop: 04/17/19 07:20 Lactated Ringer's (Ringers, Lactated) Confirm Administered Dose 1,000 mls @ as directed .ROUTE .STK-MED ONE Stop: 04/17/19 08:21 Iodine (Iodine 2% Mild Tincture) Confirm Administered Dose 30 ml .ROUTE .STK- MED ONE Stop: 04/17/19 07:13 Last Admin: 04/17/19 09:36 Dose: 18 ml Ketorolac Tromethamine (Toradol) 15 mg IVPUSH Q6H PRN PRN Reason: Pain Last Admin: 04/18/19 04:40 Dose: 15 mg Lidocaine/Sodium Bicarbonate (Buffered Lidocaine 1% In Ns 8.4%) 0.25 ml IDERM ONETIME PRN PRN Reason: Prior to IV Start Stop: 04/17/19 18:00 Last Admin: 04/17/19 07:08 Dose: 0.25 ml Lisinopril (Prinivil) 5 mg PO DAILY@1900 [facility] Midazolam HCl (Versed 1 Mg/Ml) Confirm Administered Dose 2 mg .ROUTE .STK-MED ONE Stop: 04/17/19 07:16 Ondansetron HCl (Zofran) Confirm Administered Dose 4 mg .ROUTE .STK-MED ONE Stop: 04/17/19 07:16 Oxycodone HCl (Oxycontin) 10 mg PO ONETIME [facility] Stop: 04/17/19 12:00 Last Admin: 04/17/19 07:02 Dose: 10 mg Pregabalin (Lyrica) 50 mg PO ONETIME [facility] Stop: 04/17/19 12:00 Last Admin: 04/17/19 07:03 Dose: 50 mg Propofol (Diprivan 20 Ml) Confirm Administered Dose 200 mg .ROUTE .STK-MED ONE Stop: 04/17/19 07:16 Propofol (Diprivan 20 Ml) Confirm Administered Dose 200 mg .ROUTE .STK-MED ONE Stop: 04/17/19 08:15 Propofol (Diprivan 20 Ml) Confirm Administered Dose 200 mg .ROUTE .STK-MED ONE Stop: 04/17/19 08:35 Propofol (Diprivan 20 Ml) Confirm Administered Dose 200 mg .ROUTE .STK-MED ONE Stop: 04/17/19 08:51 Propofol (Diprivan 20 Ml) Confirm Administered Dose 200 mg .ROUTE .STK-MED ONE Stop: 04/17/19 09:03 Propofol (Diprivan 20 Ml) Confirm Administered Dose 200 mg .ROUTE .STK-MED ONE Stop: 04/17/19 09:22 Propofol (Diprivan 20 Ml) Confirm Administered Dose 200 mg .ROUTE .STK-MED ONE Stop: 04/17/19 09:41 Propofol (Diprivan 20 Ml) Confirm Administered Dose 200 mg .ROUTE .STK-MED ONE Stop: 04/17/19 09:59 Rocuronium [place] (Zemuron) Confirm Administered Dose 100 mg .ROUTE .STK-MED ONE Stop: 04/17/19 07:18 Ropivacaine (Naropin 0.5%) Confirm Administered Dose 30 ml .ROUTE .STK-MED ONE Stop: 04/17/19 07:25 Scopolamine (Transderm-Scop) 1.5 mg TOP ONETIME [facility] Stop: 04/17/19 12:00 Last Admin: 04/17/19 07:02 Dose: 1.5 mg Sodium Chloride (Saline Flush) 10 ml FLUSH ASDIRECTED PRN PRN Reason: Keep Vein Open Stop: 04/17/19 18:00 Tranexamic Acid (Cyklokapron) Confirm Administered Dose 1,000 mg .ROUTE .STK- MED ONE Stop: 04/17/19 07:13 Last Admin: 04/17/19 09:44 Dose: 1,000 mg Vancomycin HCl (Vancomycin) Confirm Administered Dose 1 gm .ROUTE .STK-MED ONE Stop: 04/17/19 07:13 Last Admin: 04/17/19 09:44 Dose: 1 gm - Exam Wound/Incisions: Dressing Dry and Intact General: Alert, Cooperative, No Acute Distress Lungs: Normal Respiratory Effort Extremities: Other (NVS intact for RUE. Sachin's negative for BLE.) Sepsis Event Note - Evaluation Sepsis Screening Result: No Definite Risk - Focused Exam Vital Signs: Vital Signs Temp Pulse Resp BP Pulse Ox 04/18/19 08:52 65 16 121/63 91 L 04/18/19 08:50 63 121/63 04/18/19 04:45 98.2 F 61 18 113/73 92 L 04/18/19 01:00 98.1 F 58 L 18 99/67 93 L Date Exam was Performed: 04/18/19 Time Exam was Performed: 12:24 - Problem List Review Problem List Initiated/Reviewed/Updated: Yes - My Orders Last 24 Hours: Active Orders 24 hr Category Date Time Status Patient Status [ADT] Routine ADT 04/17/19 16:34 Active Blood Glucose Check, Bedside [RC] QIDACANDBED Care 04/17/19 14:48 Active Ready for Discharge [RC] PER UNIT ROUTINE Care 04/18/19 08:33 Active Cholecalciferol (Vitamin D3) [Vitamin D3] Med 04/17/19 19:00 Active 5,000 unit PO DAILY@1900 Clotrimazole [Lotrimin AF 1% Crm] Med 04/17/19 21:00 Active 0 gm TOP BID Diltiazem [Dilacor XR] Med 04/18/19 09:00 Active 240 mg PO DAILY Docusate Sodium [Colace] Med 04/17/19 21:00 Active 100 mg PO BID Ezetimibe [Zetia] Med 04/17/19 19:00 Active 10 mg PO DAILY@1900 Insulin Glarg,Human.Rec.Analog [LantUS] Med 04/17/19 17:45 Active 20 unit SUBCUT DAILY@1745 Insulin Lispro [HumaLOG] Med 04/17/19 17:00 Active See Protocol SUBCUT QIDACANDBED Metoprolol Succinate [Toprol XL] Med 04/18/19 09:00 Active 25 mg PO DAILY Pantoprazole [ProTONIX] Med 04/18/19 07:00 Active 40 mg PO DAILY@0700 Patient's Own Medication [Ptom] Med 04/17/19 19:00 Active 0 each PO DAILY@1900 Remove Patch Med 04/20/19 06:50 Active 1 ea TRDERM ONETIME PRN Rivaroxaban [Xarelto] Med 04/18/19 09:00 Active 20 mg PO DAILY Rosuvastatin [Crestor] Med 04/17/19 19:00 Active 20 mg PO DAILY@1900 Tamsulosin [Flomax] Med 04/17/19 19:00 Active 0.4 mg PO DAILY@1900 Medication Orders Bisacodyl (Dulcolax) 5 mg PO DAILY PRN PRN Reason: Constipation Cholecalciferol (Vitamin D3) 5,000 unit PO DAILY@1900 [facility] Last Admin: 04/17/19 18:18 Dose: 5,000 unit Clotrimazole (Lotrimin Af 1% Crm) 0 gm TOP BID [facility] Last Admin: 04/18/19 08:54 Dose: Not Given Admin: 04/17/19 21:17 Dose: Not Given Cyclobenzaprine HCl (Flexeril) 10 mg PO TID PRN PRN Reason: Spasms Last Admin: 04/18/19 10:48 Dose: 10 mg Admin: 04/18/19 01:24 Dose: 10 mg Diltiazem HCl (Dilacor Xr) 240 mg PO DAILY [facility] Last Admin: 04/18/19 08:48 Dose: 240 mg Docusate Sodium (Colace) 100 mg PO BID [facility] Last Admin: 04/18/19 08:48 Dose: 100 mg Admin: 04/17/19 21:16 Dose: 100 mg Ezetimibe (Zetia) 10 mg PO DAILY@1900 [facility] Last Admin: 04/17/19 18:19 Dose: 10 mg Insulin Glargine (Lantus) 20 unit SUBCUT DAILY@1745 [facility] Last Admin: 04/17/19 17:42 Dose: 20 units Insulin Human Lispro (Humalog) 0 unit SUBCUT QIDACANDBED [facility]; Protocol Last Admin: 04/18/19 08:50 Dose: 1 unit Admin: 04/17/19 21:35 Dose: 2 unit Admin: 04/17/19 17:42 Dose: 1 unit Magnesium Hydroxide (Milk Of Magnesia) 30 ml PO BID PRN PRN Reason: Constipation Metoprolol Succinate (Toprol Xl) 25 mg PO DAILY [facility] Last Admin: 04/18/19 08:50 Dose: 25 mg Miscellaneous Information (Remove Patch) 1 ea TRDERM ONETIME PRN PRN Reason: patch removal Stop: 04/20/19 12:00 Morphine Sulfate (Morphine) 2 mg IVPUSH Q2H PRN PRN Reason: Breakthrough Pain Naloxone HCl (Narcan) 0.1 mg IVPUSH Q5M PRN PRN Reason: Oversedation Ondansetron HCl (Zofran) 4 mg IVPUSH Q6H PRN PRN Reason: Nausea/Vomiting Oxycodone/Acetaminophen (Percocet 325-5 Mg) 1 - 2 tab PO Q4H PRN PRN Reason: Pain Last Admin: 04/18/19 08:48 Dose: 2 tab Admin: 04/18/19 04:40 Dose: 2 tab Admin: 04/18/19 01:24 Dose: 2 tab Admin: 04/17/19 21:18 Dose: 1 tab Admin: 04/17/19 18:31 Dose: 1 tab Pantoprazole Sodium (Protonix) 40 mg PO DAILY@0700 [facility] Last Admin: 04/18/19 06:53 Dose: 40 mg Empagliflozin [ (Jardiance] 25 Mg) 0 each PO DAILY@1900 [facility] Last Admin: 04/17/19 18:32 Dose: Rivaroxaban (Xarelto) 20 mg PO DAILY [facility] Last Admin: 04/18/19 08:48 Dose: 20 mg Rosuvastatin Calcium (Crestor) 20 mg PO DAILY@1900 [facility] Last Admin: 04/17/19 18:18 Dose: 20 mg Senna (Senna) 8.6 mg PO BID PRN PRN Reason: Constipation Tamsulosin HCl (Flomax) 0.4 mg PO DAILY@1900 [facility] Last Admin: 04/17/19 18:18 Dose: 0.4 mg - Assessment Assessment (Free Text/Narrative):: POD#1 - right reverse TSA - Plan Plan (Free Text/Narrative):: 1. Hgb 11.1. 2. The pt will resume use of Xarelto today. Frequent mobility, TEDs ordered. 3. Discharge to home today. 4. Outpatient therapy. The pt's case was discussed with Dr. Germain.
--- NOTE | 2019-04-18 12:30 | PCM.DCSUM1 ---
Discharge Summary - Hospital Course Brief History: Brien is a 68 yo male who underwent right reverse TSA with Dr. Germain on 04-17-2019. The procedure was completed under general anesthesia and regional block. The pt tolerated the procedure well and was admitted to the Medical-Surgical Unit. Medical management was provided by the Hospitalist service. The pt's Hospital course was uneventful. The pt's Hgb on POD#1 was 11.1. On POD#1, the pt resumed use of Xarelto. SCDs and TEDs were also ordered. A Mepilex dressing was placed at the incision site at the time of surgery and remained clean and dry. The pt participated in P.T. and O.T. and progressed well. On POD#1, the pt was deemed appropriate to discharge to home with his . - Discharge Data Discharge Date: 04/18/19 Discharge Disposition: Home, Self-Care 01 Condition: Good - Referral to Home Health Primary Care Physician: Maxi Lopez MD - Patient Summary/Data Consults: Consultations 04/17/19 06:34 OT Evaluation and Treatment [CONS] Routine PT Evaluation and Treatment [CONS] Routine 04/17/19 06:35 Consult to Physician [CONS] Routine - Patient Instructions Diet: Usual Diet as Tolerated Activity: Apply Ice, As Tolerated, Elevate Extremity Activity, Other: No forceful use of the surgical limb. Driving: Do Not Drive Showering/Bathing: May Shower Wound/Incision Care: Keep Operative Site/Wound Site Clean and Dry, Do NOT Change Dressing Notify Provider of: Fever, Increased Pain, Swelling and Redness, Drainage, Nausea and/or Vomiting Other/Special Instructions: Please get up and moving around EVERY HOUR while awake. This helps to prevent blood clots. Please have help with mobility as needed. Take a short walk in your home every hour while awake. Please resume use of the Xarelto blood thinner medication. At home, please complete the exercises that you learned during the Hospital stay. Schedule for physical or occupational therapy. Use the pain medication as needed. The medication may cause drowsiness and constipation. Contact your primary care provider for instructions if you are constipated. You may use a stool softener like docusate sodium or Colace 100mg twice daily and/or a laxative like Miralax daily for constipation. Increase your water and fiber intake while you are using the pain medication. Discontinue use of the pain medication as soon as able. Please do not use other medications that may cause drowsiness (other pain medications, anxiety pills, cold medications, sleeping pills, etc) while using the prescription pain medication. Do not use alcohol while using the pain medication. You may use acetaminophen or Tylenol for pain management, however, please ensure you are not using over 4000 mg or 4 grams of acetaminophen per day from all sources. Your pain medication has 325mg of acetaminophen per tablet. Wear the MCKINLEY hose during the day and you may remove these at night. Elevate the limb to decrease swelling. Place ice to the area often. Place a towel between your skin and the blue pad. Use the incentive spirometer often. Take deep breaths throughout the day. Please keep the dressing in place until follow-up. Notify the Clinic if the dressing becomes saturated. Increase your protein intake while you are healing. Please very closely monitor your blood sugars and notify your primary care provider with abnormal values. Elevated blood sugars increases the risk of infection. Call the Clinic with questions or concerns - [phone]. - Discharge Plan *PRESCRIPTION DRUG MONITORING PROGRAM REVIEWED*: No *COPY OF PRESCRIPTION DRUG MONITORING REPORT IN PATIENT MARCELO: No Prescriptions/Med Rec: Acetaminophen/oxyCODONE [Percocet 325-5 MG] 1 - 2 tab PO Q4H PRN #60 tablet PRN Reason: Pain Cyclobenzaprine [Flexeril] 10 mg PO TID PRN #40 tablet PRN Reason: Spasms Home Medications: Home Meds Acetaminophen/Diphenhydramine [Tylenol Pm Ex-Strength Caplet] 2 dose PO BEDTIME PRN 04/14/19 [History] Cannabidiol (Cbd) Extract [CBD Oil] 1 dose PO DAILY 04/14/19 [History] Celecoxib 200 mg PO BID PRN 04/14/19 [History] Cholecalciferol (Vitamin D3) [Vitamin D3] 5,000 unit PO DAILY 04/14/19 [History] Diltiazem HCl [Cardizem Cd] 240 mg PO DAILY 04/14/19 [History] Empagliflozin [Jardiance] 25 mg PO DAILY 04/14/19 [History] Ezetimibe 10 mg PO DAILY 04/14/19 [History] Insulin Glarg,Human.Rec.Analog [Lantus Solostar] 20 units SQ BEDTIME 04/14/19 [ History] Ketoconazole [Nizoral 2% Crm] 1 dose TOP BID 04/14/19 [History] Lisinopril [Prinivil] 5 mg PO DAILY 04/14/19 [History] Metoprolol Succinate [Toprol Xl] 25 mg PO DAILY 04/14/19 [History] Omeprazole 20 mg PO DAILY 04/14/19 [History] Ondansetron HCl [Zofran] 4 mg PO TID PRN 04/14/19 [History] Pioglitazone HCl 30 mg PO DAILY 04/14/19 [History] Rivaroxaban [Xarelto] 20 mg PO DAILY 04/14/19 [History] Rosuvastatin Calcium 20 mg PO DAILY 04/14/19 [History] Tamsulosin HCl 0.4 mg PO DAILY 04/14/19 [History] metFORMIN HCl [Metformin HCl] 850 mg PO BID 04/14/19 [History] Acetaminophen/oxyCODONE [Percocet 325-5 MG] 1 - 2 tab PO Q4H PRN #60 tablet 02/25 [Rx] Bisacodyl [Dulcolax] 5 mg PO DAILY PRN tablet 04/18/19 [Rx] Cyclobenzaprine [Flexeril] 10 mg PO TID PRN #40 tablet 04/18/19 [Rx] Docusate Sodium [Colace] 100 mg PO BID cap 04/18/19 [Rx] Magnesium Hydroxide [Milk of Magnesia] 30 ml PO BID PRN cup 04/18/19 [Rx] Remove Patch 1 ea TRDERM ONETIME PRN each 04/18/19 [Rx] Sennosides [Senna] 8.6 mg PO BID PRN tablet 04/18/19 [Rx] Patient Handouts: Rivaroxaban oral tablets, Reverse Total Shoulder Replacement Referrals: Ewa Zhang PA-C [Physician Aircraft Cleaning Supervisor] - (please attend the follow up appointments with Ewa Zhang on 04/25/19 at 0915 05/01/19 at 1130 and at 1145) Maxi Lopez MD [Primary Care Provider] - 04/26/19 1:30 pm (please attend the scheduled follow up appointment with Dr. Lopez as listed.) - Discharge Summary/Plan Comment DC Time >30 min.: No - Patient Data Vitals - Most Recent: Last Vital Signs Temp 98.2 F 04/18/19 04:45 Pulse 65 04/18/19 08:52 Resp 16 04/18/19 08:52 BP 121/63 04/18/19 08:52 Pulse Ox 91 L 04/18/19 08:52 Weight - Most Recent: 195 lb 1.6 oz I&O - Last 24 hours: Intake & Output 04/17/19 04/18/19 04/18/19 22:59 06:59 14:59 Intake Total 1590 350 240 Output Total 350 800 Balance 1240 -450 240 Lab Results - Last 24 hrs: Laboratory Results - last 24 hr 04/17/19 04/17/19 04/18/19 Range/Units 17:24 21:26 04:54 WBC 10.55 H (4.23-9.07) K/mm3 RBC 4.39 L (4.63-6.08) M/mm3 Hgb 11.1 L (13.7-17.5) gm/dl Hct 35.7 L (40.1-51.0) % MCV 81.3 (79.0-92.2) fl MCH 25.3 L (25.7-32.2) pg MCHC 31.1 L (32.2-35.5) g/dl RDW Std Deviation 55.8 H (35.1-43.9) fL Plt Count 300 (163-337) K/mm3 MPV 10.2 (9.4-12.3) fl Sodium (136-145) mEq/L Potassium (3.5-5.1) mEq/L Chloride (98-107) mEq/L Carbon Dioxide (21-32) mEq/L Anion Gap (5-15) BUN (7-18) mg/dL Creatinine (0.7-1.3) mg/dL Est Cr Clr Drug Dosing mL/min Estimated GFR (MDRD) (>60) mL/min BUN/Creatinine Ratio (14-18) Glucose (80-115) mg/dL POC Glucose 180 H 216 H (80-115) mg/dL Calcium (8.5-10.1) mg/dL Total Bilirubin (0.2-1.0) mg/dL AST (15-37) U/L ALT (16-63) U/L Alkaline Phosphatase (46-116) U/L Total Protein (6.4-8.2) g/dl Albumin (3.4-5.0) g/dl Globulin gm/dL Albumin/Globulin Ratio (1-2) 04/18/19 04/18/19 Range/Units 04:54 07:02 WBC (4.23-9.07) K/mm3 RBC (4.63-6.08) M/mm3 Hgb (13.7-17.5) gm/dl Hct (40.1-51.0) % MCV (79.0-92.2) fl MCH (25.7-32.2) pg MCHC (32.2-35.5) g/dl RDW Std Deviation (35.1-43.9) fL Plt Count (163-337) K/mm3 MPV (9.4-12.3) fl Sodium 140 (136-145) mEq/L Potassium 4.1 (3.5-5.1) mEq/L Chloride 105 (98-107) mEq/L Carbon Dioxide 25 (21-32) mEq/L Anion Gap 14.1 (5-15) BUN 18 (7-18) mg/dL Creatinine 0.9 (0.7-1.3) mg/dL Est Cr Clr Drug Dosing 91.24 mL/min Estimated GFR (MDRD) > 60 (>60) mL/min BUN/Creatinine Ratio 20.0 H (14-18) Glucose 141 H (80-115) mg/dL POC Glucose 165 H (80-115) mg/dL Calcium 8.7 (8.5-10.1) mg/dL Total Bilirubin 0.3 (0.2-1.0) mg/dL AST 15 (15-37) U/L ALT 18 (16-63) U/L Alkaline Phosphatase 59 (46-116) U/L Total Protein 6.4 (6.4-8.2) g/dl Albumin 3.2 L (3.4-5.0) g/dl Globulin 3.2 gm/dL Albumin/Globulin Ratio 1.0 (1-2) Med Orders - Current: Current Medications Bisacodyl (Dulcolax) 5 mg PO DAILY PRN PRN Reason: Constipation Cholecalciferol (Vitamin D3) 5,000 unit PO DAILY@1900 [facility] Last Admin: 12/09/19 18:18 Dose: 5,000 unit Clotrimazole (Lotrimin Af 1% Crm) 0 gm TOP BID [facility] Last Admin: 04/18/19 08:54 Dose: Not Given Cyclobenzaprine HCl (Flexeril) 10 mg PO TID PRN PRN Reason: Spasms Last Admin: 04/18/19 10:48 Dose: 10 mg Diltiazem HCl (Dilacor Xr) 240 mg PO DAILY [facility] Last Admin: 04/18/19 08:48 Dose: 240 mg Docusate Sodium (Colace) 100 mg PO BID [facility] Last Admin: 04/18/19 08:48 Dose: 100 mg Ezetimibe (Zetia) 10 mg PO DAILY@190 [facility] Last Admin: 04/17/19 18:19 Dose: 10 mg Insulin Glargine (Lantus) 20 unit SUBCUT DAILY@1745 [facility] Last Admin: 04/17/19 17:42 Dose: 20 units Insulin Human Lispro (Humalog) 0 unit SUBCUT QIDACANDBED [facility]; Protocol Last Admin: 04/18/19 08:50 Dose: 1 unit Magnesium Hydroxide (Milk Of Magnesia) 30 ml PO BID PRN PRN Reason: Constipation Metoprolol Succinate (Toprol Xl) 25 mg PO DAILY [facility] Last Admin: 04/18/19 08:50 Dose: 25 mg Miscellaneous Information (Remove Patch) 1 ea TRDERM ONETIME PRN PRN Reason: patch removal Stop: 04/20/19 12:00 Morphine Sulfate (Morphine) 2 mg IVPUSH Q2H PRN PRN Reason: Breakthrough Pain Naloxone HCl (Narcan) 0.1 mg IVPUSH Q5M PRN PRN Reason: Oversedation Ondansetron HCl (Zofran) 4 mg IVPUSH Q6H PRN PRN Reason: Nausea/Vomiting Oxycodone/Acetaminophen (Percocet 325-5 Mg) 1 - 2 tab PO Q4H PRN PRN Reason: Pain Last Admin: 04/18/19 08:48 Dose: 2 tab Pantoprazole Sodium (Protonix) 40 mg PO DAILY@0700 [facility] Last Admin: 04/18/19 06:53 Dose: 40 mg Empagliflozin [ (Jardiance] 25 Mg) 0 each PO DAILY@1900 [facility] Last Admin: 04/17/19 18:32 Dose: Not Given Rivaroxaban (Xarelto) 20 mg PO DAILY [facility] Last Admin: 04/18/19 08:48 Dose: 20 mg Rosuvastatin Calcium (Crestor) 20 mg PO DAILY@1899 [facility] Last Admin: 04/17/19 18:18 Dose: 20 mg Senna (Senna) 8.6 mg PO BID PRN PRN Reason: Constipation Tamsulosin HCl (Flomax) 0.4 mg PO DAILY@1899 [facility] Last Admin: 04/17/19 18:18 Dose: 0.4 mg Discontinued Medications Acetaminophen (Tylenol) 975 mg PO NOW [facility] Stop: 04/17/19 12:00 Last Admin: 04/17/19 07:03 Dose: 975 mg Cefazolin Sodium (Ancef) Confirm Administered Dose 2 gm .ROUTE .STK-MED ONE Stop: 04/17/19 07:13 Last Admin: 04/17/19 09:38 Dose: 2 gm Cefazolin Sodium (Ancef) Confirm Administered Dose 2 gm .ROUTE .STK-MED ONE Stop: 04/17/19 07:21 Dexamethasone (Dexamethasone) Confirm Administered Dose 20 mg .ROUTE .STK-MED ONE Stop: 04/17/19 08:24 Diphenhydramine HCl (Benadryl) Confirm Administered Dose 50 mg .ROUTE .STK-MED ONE Stop: 04/17/19 08:43 Epinephrine HCl (Adrenalin) Confirm Administered Dose 1 mg .ROUTE .STK-MED ONE Stop: 04/17/19 07:25 Famotidine (Pepcid) 20 mg PO Q12H [facility] Last Admin: 04/17/19 12:28 Dose: Not Given Fentanyl (Sublimaze) Confirm Administered Dose 100 mcg .ROUTE .STK-MED ONE Stop: 04/17/19 07:16 Lactated Ringer's (Ringers, Lactated) 1,000 mls @ 125 mls/hr IV ASDIRECTED [facility] Stop: 04/17/19 23:00 Last Admin: 04/17/19 07:07 Dose: 125 mls/hr Cefazolin Sodium/Dextrose 2 gm (/ Premix) 50 mls @ 100 mls/hr IV Q8H [facility] Stop: 04/18/19 07:29 Last Admin: 04/18/19 06:53 Dose: 100 mls/hr Lidocaine HCl (Xylocaine-Mpf 1%) Confirm Administered Dose 4 mls @ as directed .ROUTE .STK-MED ONE Stop: 04/17/19 07:18 Lidocaine HCl (Xylocaine-Mpf 1%) Confirm Administered Dose 2 mls @ as directed .ROUTE .STK-MED ONE Stop: 04/17/19 07:20 Lactated Ringer's (Ringers, Lactated) Confirm Administered Dose 1,000 mls @ as directed .ROUTE .STK-MED ONE Stop: 04/17/19 08:21 Iodine (Iodine 2% Mild Tincture) Confirm Administered Dose 30 ml .ROUTE .STK- MED ONE Stop: 04/17/19 07:13 Last Admin: 04/17/19 09:36 Dose: 18 ml Ketorolac Tromethamine (Toradol) 15 mg IVPUSH Q6H PRN PRN Reason: Pain Last Admin: 04/18/19 04:40 Dose: 15 mg Lidocaine/Sodium Bicarbonate (Buffered Lidocaine 1% In Ns 8.4%) 0.25 ml IDERM ONETIME PRN PRN Reason: Prior to IV Start Stop: 04/17/19 18:00 Last Admin: 04/17/19 07:08 Dose: 0.25 ml Lisinopril (Prinivil) 5 mg PO DAILY@1900 [facility] Midazolam HCl (Versed 1 Mg/Ml) Confirm Administered Dose 2 mg .ROUTE .STK-MED ONE Stop: 04/17/19 07:16 Ondansetron HCl (Zofran) Confirm Administered Dose 4 mg .ROUTE .STK-MED ONE Stop: 04/17/19 07:16 Oxycodone HCl (Oxycontin) 10 mg PO ONETIME [facility] Stop: 04/17/19 12:00 Last Admin: 04/17/19 07:02 Dose: 10 mg Pregabalin (Lyrica) 50 mg PO ONETIME [facility] Stop: 04/17/19 12:00 Last Admin: 04/17/19 07:03 Dose: 50 mg Propofol (Diprivan 20 Ml) Confirm Administered Dose 200 mg .ROUTE .STK-MED ONE Stop: 04/17/19 07:16 Propofol (Diprivan 20 Ml) Confirm Administered Dose 200 mg .ROUTE .STK-MED ONE Stop: 04/17/19 08:15 Propofol (Diprivan 20 Ml) Confirm Administered Dose 200 mg .ROUTE .STK-MED ONE Stop: 04/17/19 08:35 Propofol (Diprivan 20 Ml) Confirm Administered Dose 200 mg .ROUTE .STK-MED ONE Stop: 04/17/19 08:51 Propofol (Diprivan 20 Ml) Confirm Administered Dose 200 mg .ROUTE .STK-MED ONE Stop: 04/17/19 09:03 Propofol (Diprivan 20 Ml) Confirm Administered Dose 200 mg .ROUTE .STK-MED ONE Stop: 04/17/19 09:22 Propofol (Diprivan 20 Ml) Confirm Administered Dose 200 mg .ROUTE .STK-MED ONE Stop: 04/17/19 09:41 Propofol (Diprivan 20 Ml) Confirm Administered Dose 200 mg .ROUTE .STK-MED ONE Stop: 04/17/19 09:59 Rocuronium Taylor (Zemuron) Confirm Administered Dose 100 mg .ROUTE .STK-MED ONE Stop: 04/17/19 07:18 Ropivacaine (Naropin 0.5%) Confirm Administered Dose 30 ml .ROUTE .STK-MED ONE Stop: 04/17/19 07:25 Scopolamine (Transderm-Scop) 1.5 mg TOP ONETIME [facility] Stop: 04/17/19 12:00 Last Admin: 04/17/19 07:02 Dose: 1.5 mg Sodium Chloride (Saline Flush) 10 ml FLUSH ASDIRECTED PRN PRN Reason: Keep Vein Open Stop: 04/17/19 18:00 Tranexamic Acid (Cyklokapron) Confirm Administered Dose 1,000 mg .ROUTE .STK- MED ONE Stop: 04/17/19 07:13 Last Admin: 04/17/19 09:44 Dose: 1,000 mg Vancomycin HCl (Vancomycin) Confirm Administered Dose 1 gm .ROUTE .STK-MED ONE Stop: 04/17/19 07:13 Last Admin: 04/17/19 09:44 Dose: 1 gm
--- NOTE | 2019-04-21 10:34 | PCM.OPNOTE ---
- General Post-Op/Procedure Note Date of Surgery/Procedure: 04/17/19 Operative Procedure(s): right reverse total shoulder arthroplasty Pre Op Diagnosis: right shoulder rotator cuff tear arthropathy Post-Op Diagnosis: Same Anesthesia Technique: General ET Tube, Regional Block Primary Surgeon: Manuel Germain Anesthesia Provider: Moose [place] Commissioner: Ewa [place] Commissioner: Layne Tineo EBL in mLs: 70 Complications: None Condition: Good Free Text/Narrative:: 15 helena stem 28mm baseplate 36+6 glenosphere +4 poly
--- NOTE | 2019-04-21 13:07 | OR ---
DATE OF OPERATION: 04/17/2019 SURGEON: Manuel Germain MD OPERATION PERFORMED: Right reverse total shoulder arthroplasty. PREOPERATIVE DIAGNOSIS: Right shoulder rotator cuff tear arthropathy. POSTOPERATIVE DIAGNOSIS: Right shoulder rotator cuff tear arthropathy. ANESTHESIA: General endotracheal intubation with regional interscalene block. ANESTHESIA PROVIDER: Moose [place] CRNA. TANK TRUCK MECHANIC: Ewa Zhang PA-C and Layne Tineo LPN. ESTIMATED BLOOD LOSS: 70 mL. COMPLICATIONS: None. CONDITION: Stable. IMPLANTS: 1. Nadja size 15, 135-degree reverse humeral stem with a +4 liner. 2. Nadja size 28 mm glenoid baseplate. 3. Ione size 36+ 6 glenosphere. DESCRIPTION OF PROCEDURE: The patient was identified in the preoperative holding area where proper site was marked and identified by the surgeon. The patient was takes back to the operating theater. After adequate anesthesia, the patient's right upper extremity was sterilely prepped and draped in the usual sterile fashion. OR time-out was performed. The patient received appropriate antibiotics. At this time, a deltopectoral incision was made. This was taken down to the cephalic vein. The cephalic vein was identified and was retracted laterally with the deltoid. The clavipectoral fascia was then incised and the conjoined tendon was retracted medially. Anterior humeral circumflex vessels were identified and then were cauterized. Subdeltoid as well as subacromial adhesions were then removed. Biceps tendon was identified and biceps tenodesis was performed just superior to the pectorals major and takedown of the groove was done down to the level of the glenoid and the biceps tendon was resected, takedown to the subscapularis tendon was then done and the humeral head was dislocated. Neck cut was then completed and found to be adequate. Attention was then turned to the glenoid. Posterior and anterior retractors were then placed. Circumferential removal of the labrum as well any remaining biceps was then done and a capsulectomy was then performed anteriorly. Guidepin was then placed in roughly 10-degree inferior tilt position and a center-center position otherwise. The reamer was then used for 28 mm glenoid baseplate and was found to have a good smile sign inferiorly. At this time, the 28-mm glenoid baseplate was then screwed into place with the compression screw. After this was found to have good take compression, superior and inferior locking screws were placed with the inferior locking screw being placed first. At this time, the 36+ 6 glenosphere was impacted into place. It was found to be adequately secured. Attention was turned to the humerus. Starter awl was placed down the canal up to a size 15. At this time, we started with a 13 broach, then up to a size 15 which was found to be rotationally and vertically stable. Calcar planer was then utilized and the trial implants were done. The patient had stable range of motion throughout with a +4 liner with no over-tensioning of the deltoid or this conjoined tendon. The shoulder was then dislocated and constructed on the back table with a +4 liner size 15 stem at 135 degrees. Then, this was impacted into place in a monoblock fashion, and the shoulder was reduced. C-arm fluoroscopy showed all implants to be in adequate position. 1 L dilute Betadine solution was then irrigated through the shoulder along with 3 L of pulse lavage irrigation with Ancef. Topical tranexamic acid and vancomycin powder were applied. 2-0 Vicryl was used subcutaneously and Prineo was used for the skin. The patient tolerated the procedure well and was sent to PACU in stable condition. KATY /[id number]
== END 2019-04-18 11:26 | disposition home or self-care (01) | DRG 483 ==
LOC: JD.MS 06:04
PROVIDERS: ADMIT Orthopaedic Surgery; ATTEND Orthopaedic Surgery
PROC: 0RRJ00Z Replacement of Right Shoulder Joint with Reverse Ball and Socket Synthetic Substitute, Open Approach (ICD-10-PCS; principal; 2019-04-17)
DX: M19.011 Primary osteoarthritis, right shoulder (principal); M16.12 Unilateral primary osteoarthritis, left hip; I48.91 Unspecified atrial fibrillation; I34.0 Nonrheumatic mitral (valve) insufficiency; N40.0 Benign prostatic hyperplasia without lower urinary tract symptoms; D50.9 Iron deficiency anemia, unspecified; K21.9 Gastro-esophageal reflux disease without esophagitis; E78.5 Hyperlipidemia, unspecified; I25.10 Atherosclerotic heart disease of native coronary artery without angina pectoris; E11.9 Type 2 diabetes mellitus without complications; R63.4 Abnormal weight loss; I10 Essential (primary) hypertension; M75.40 Impingement syndrome of unspecified shoulder; M65.849 Other synovitis and tenosynovitis, unspecified hand; G89.29 Other chronic pain; M54.5 Low back pain; K29.70 Gastritis, unspecified, without bleeding; M85.9 Disorder of bone density and structure, unspecified; Z79.4 Long term (current) use of insulin; Z79.899 Other long term (current) drug therapy; Z88.1 Allergy status to other antibiotic agents; Z88.0 Allergy status to penicillin; Z79.01 Long term (current) use of anticoagulants; Z95.1 Presence of aortocoronary bypass graft; Z98.890 Other specified postprocedural states; Z87.891 Personal history of nicotine dependence
CPT/HCPCS: 01638; 36415; 64415; 73020-26-RT; 73020-RT; 76000; 76000-26; 80053; 82962; 85027; 87641; 94760; 97110-GP; 97161-GP; 97165-GO; 97535-GO; 99222; 99232; A9270-GY; C1713; C1776; J0171; J0690; J1100; J1200; J1815-GY; J1885; J2001; J2250; J2405; J2704; J2795; J3010; J3370; J7120